=== PATIENT | female | born 1960 | race Caucasian/White ===

== ENCOUNTER 2023-10-09 05:21 | Day surgery (SDC) | payer OTHER ==
[~2023-10-09] VITALS: Ht 152.4 cm; Wt 68.6 kg
[2023-10-09] MEDS ORDERED: DULO-114 PO (07:35)
[2023-10-09] MEDS ORDERED: BACL20TA PO (07:35)
[2023-10-09] MEDS ORDERED: OMEP20CA12 PO (07:35)
[2023-10-09] MEDS ORDERED: FLUT1DIS26 PO (07:35)
[2023-10-09] MEDS ORDERED: CHOL10002 PO (07:35)
[2023-10-09] MEDS ORDERED: GABA-529 PO (07:35)
[2023-10-09] MEDS ORDERED: MONT-40 PO (07:35)
[2023-10-09] MEDS ORDERED: PRED5TAB2 PO (07:35)
[2023-10-09] MEDS ORDERED: LEVO50 PO (07:35)
[2023-10-09] MEDS ORDERED: SODIUM CHLORIDE 0.9% 1,000 ML IV ONE (08:00)
[2023-10-09] MEDS ORDERED: MIDAZOLAM HCL 2 MG/2 ML VIAL ONE (08:40)
[2023-10-09] MEDS ORDERED: FentaNYL CITRATE PF 100 MCG/2 ML VIAL ONE (08:40)
[2023-10-09 09:35] VITALS: PULSE 71; RESP 18; O2SAT 99
[2023-10-09] MEDS ORDERED: MethylPREDNISolone SOD SUCC 125 MG/2 ML VIAL IVP ONE (09:45)
[2023-10-09] MEDS ORDERED: MethylPREDNISolone SOD SUCC 125 MG/2 ML VIAL ONE (10:13)
[2023-10-09] MEDS ORDERED: LIDOCAINE 2% 11 ML JELLY ONE (16:33)
[2023-10-09] MEDS ORDERED: BENZOCAINE 20% 50 MCG/SPRAY 57 GM ONE (16:33)
[2023-10-09] MEDS ORDERED: ALBUTEROL SULFATE 2.5 MG/0.5 ML NEB SOLUTION NEB ONE (16:33)
[2023-10-09] MEDS ORDERED: LIDOCAINE 4% 50 ML SOLUTION ONE (16:33)
== END 2023-10-09 11:35 | disposition home or self-care (01) ==
LOC: SURGERY 05:21
PROVIDERS: ATTEND Internal Medicine Critical Care Medicine
DX: J38.4 Edema of larynx (principal); B37.0 Candidal stomatitis; E11.9 Type 2 diabetes mellitus without complications; Z88.2 Allergy status to sulfonamides; Z88.8 Allergy status to other drugs, medicaments and biological substances; Z98.51 Tubal ligation status; Z79.899 Other long term (current) drug therapy; Z91.041 Radiographic dye allergy status
CPT/HCPCS: 31623; 87206; 87101; 87220; 87070; 31624; 71045; 87015; J3010; J2250; J2930; Q9967; J7613; Z7610